=== PATIENT | female | born 1995 | race Hispanic/Latino ===

== ENCOUNTER 2017-10-03 03:53 | Emergency (ER) | payer SELFPAY ==
[~2017-10-03] VITALS: Ht 154.9 cm; Wt 99.8 kg
[2017-10-03] MEDS ORDERED: ALPRAZOLAM 0.5 MG TAB ONE (03:59)
[2017-10-03] MEDS ORDERED: ALPRAZOLAM 0.5 MG TAB PO ONE (04:00)
== END 2017-10-03 04:35 | disposition home or self-care (01) ==
LOC: ER 03:53
DX: F41.9 Anxiety disorder, unspecified (principal); F32.9 Major depressive disorder, single episode, unspecified
CPT/HCPCS: 99282

== ENCOUNTER 2019-01-16 13:00 | Emergency (ER) | payer BC, OTHER ==
[~2019-01-16] VITALS: Ht 154.9 cm; Wt 122.5 kg
[~2019-01-16 13:00] MED LIST: EPINEPHRINE 0.3 MG/0.3 ML PEN.INJCTR IM STA
[2019-01-16] MEDS ORDERED: FAMOTIDINE 20 MG/2 ML VIAL IV STA (13:08)
[2019-01-16] MEDS ORDERED: EPINEPHRINE 2.25% INH NEBU SOL 0.5 ML VIAL ONE (13:11)
[2019-01-16] MEDS ORDERED: METHYLPREDNISOLONE SOD SUCC 125 MG/2ML VIAL IV ONE (13:15)
[2019-01-16] MEDS ORDERED: DIPHENHYDRAMINE HCL INJ 50 MG/ML VIAL IV ONE (13:15)
[2019-01-16] MEDS ORDERED: FAMOTIDINE 20 MG/2 ML VIAL IV ONE ×2 (13:15→13:30)
[2019-01-16] MEDS ORDERED: EPINEPHRINE 2.25% INH NEBU SOL 0.5 ML VIAL INH ONE (13:30)
[2019-01-16] MEDS ORDERED: DEXAMETHASONE SOD PHOS 10 MG/1 ML VIAL IV ONE (13:30)
== END 2019-01-16 15:05 | disposition home or self-care (01) ==
LOC: ER 13:00
DX: L50.0 Allergic urticaria (principal); T78.2XXA Anaphylactic shock, unspecified, initial encounter; J98.01 Acute bronchospasm; F41.9 Anxiety disorder, unspecified; F32.9 Major depressive disorder, single episode, unspecified
CPT/HCPCS: 94640; 99282

== ENCOUNTER 2020-01-26 01:57 | Emergency (ER) | payer BC, OTHER ==
[~2020-01-26] VITALS: Ht 154.9 cm; Wt 122.5 kg
[2020-01-26] MEDS ORDERED: IBUPROFEN 600 MG TAB PO STA (01:59)
[2020-01-26 02:53] LABS: AMPHETAMINES SCREEN,URINE NEGATIVE (NEGATIVE); BENZODIAZEPINES SCREEN,URINE NEGATIVE (NEGATIVE); PHENCYCLIDINE SCREEN,URINE NEGATIVE (NEGATIVE)
--- NOTE | 2020-01-26 03:45 | Diagnostic Imaging Report ---
SACRUM X-RAY - 3 views HISTORY: Pain COMPARISON: None available. FINDINGS: See impression. IMPRESSION: Right superior sacral lucent line, extending to the right sacroiliac joint, could be artifactual related to bowel gas or represent nondisplaced fracture. Otherwise no evidence of acute displaced fracture or dislocation. Signed by: Dr. Shlomo Smith MD on 01/26/2020 3:41 AM
[2020-01-26] MEDS ORDERED: ULTRAM50 MG PO (04:02)
[2020-01-26 04:03] VITALS: BP 116/88
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
== END 2020-01-26 04:13 | disposition home or self-care (01) ==
LOC: ER 02:01
DX: M53.3 Sacrococcygeal disorders, not elsewhere classified (principal); V43.62XA Car passenger injured in collision with other type car in traffic accident, initial encounter; Y92.488 Other paved roadways as the place of occurrence of the external cause; F41.9 Anxiety disorder, unspecified; E28.2 Polycystic ovarian syndrome; F17.210 Nicotine dependence, cigarettes, uncomplicated
CPT/HCPCS: 72220; 80307; 81025; 99283